=== PATIENT | female | born 1955 | race Caucasian/White ===

== ENCOUNTER 2017-12-12 01:36 | Inpatient (IN) | payer BC ==
[~2017-12-12] VITALS: Ht 165.1 cm; Wt 85.0 kg
[2017-12-12] VITALS (13 sets, daily range): BP systolic 93–132; BP diastolic 49–69
[2017-12-12 02:06] LABS: BASO % 1 % (0-3); EOS # 0.1 x10^3/uL (0.0-0.7); EOS % 1 % (0-3); HEMATOCRIT 34.8 % (36.0-47.0); LYMPH # 1.8 x10^3/uL (1.0-4.8); LYMPH % 20 % (24-48); MEAN CORPUSCULAR HEMOGLOBIN 34 pg (25-35); MEAN CORPUSCULAR HGB CONC 34 g/dL (31-37); MEAN CORPUSCULAR VOLUME 98 fL (79-100); MONO # 1.4 x10^3/uL (0.0-1.1); MONO % 15 % (0-9); NEUT # 5.9 x10^3uL (1.8-7.7); NEUT % 64 % (31-73); PLATELET COUNT 151 x10^3/uL (140-400); RED BLOOD COUNT 3.57 x10^6/uL (3.50-5.40); RED CELL DISTRIBUTION WIDTH 14.7 % (11.5-14.5); WHITE BLOOD COUNT 9.3 x10^3/uL (4.0-11.0)
[2017-12-12 02:21] LABS: CALCIUM 9.4 mg/dL (8.5-10.1); CREATININE 0.8 mg/dL (0.6-1.0); GFR 72.9; POTASSIUM 4.1 mmol/L (3.5-5.1)
[2017-12-12 02:25] LABS: ALBUMIN 3.6 g/dL (3.4-5.0); ALBUMIN/GLOBULIN RATIO 1.1 (1.0-1.7); TOTAL BILIRUBIN 0.2 mg/dL (0.2-1.0); TOTAL PROTEIN 6.9 g/dL (6.4-8.2)
[2017-12-12] MEDS ORDERED: fentaNYL PF VIAL 100 MCG/2 ML VIAL IV ONE ×2 (02:30→11:15)
[2017-12-12] MEDS ORDERED: CONTRAST GIVEN. MC PRN (02:45)
[2017-12-12] MEDS ORDERED: IOHEXOL 300 MG/ML 100ML VIAL. IV ONE (03:00)
--- NOTE | 2017-12-12 03:21 | RAD ---
INDICATION: chest pain, sob; Omni 300, 75ml COMPARISON: None. TECHNIQUE: Axial CT images obtained through the chest. Intravenous contrast utilized. Angiogram 3D images processed per protocol. One or more of the following individualized dose reduction techniques were utilized for this examination: 1. Automated exposure control; 2. Adjustment of the mA and/or kV according to patient size; 3. Use of iterative reconstruction technique. FINDINGS: There are some mild groundglass opacities and regions of air trapping. Sub-4 mm nodule left upper lung. No evidence of pneumothorax. Mild subpleural nodularity at right lung apex. Scattered calcific atherosclerosis. Portion of ascending thoracic aorta limited by motion but no definite aneurysm or dissection flap is seen in visualized portions. Coronary artery calcific atherosclerosis. Degenerative changes of the spine. No central pulmonary embolus IMPRESSION: No central pulmonary embolus. There are scattered groundglass opacities within the lungs. Could be secondary to causes such as mild edema or small airway inflammation from causes such as pneumonitis. Sub-4 mm left upper lung nodule. Fleischner Society recommendations for solitary solid lung nodule follow up.: In a low risk patient: <6mm - No follow up required. 6-8mm - 6-[address], then CT at 18-24 months. >8mm - CT at 3 months, PET/CT or tissue sampling. In a high risk patient (history of smoking or other known risk factors): <6mm - Follow up CT at 12 months. 6-8mm - 6-[address], then CT at 18-24 months. >8mm - CT at 3 months, PET/CT or tissue sampling. Fleischner Society recommendations for multiple solid lung nodule follow up.: In a low risk patient: <6mm - No follow up required. 6-8mm - 3-[address], then CT at 18-24 months. >8mm - CT at 3-6 months, then at 18-24 months. PET/CT or tissue sampling based on most suspicious nodule. In a high risk patient (history of smoking or other known risk factors): <6mm - Follow up CT at 12 months. 6-8mm - 3-[address], then CT at 18-24 months. >8mm - CT at 3-6 months, PET/CT or tissue sampling option based on most suspicious nodule. Electronically signed by: Nathan Mahan MD (12/12/2017 3:18 AM) [facility]
[2017-12-12] MEDS ORDERED: NITROGLYCERIN SUBLINGUAL 0.4 MG BOTTLE OF 25. SL PRN ×2 (03:30→11:30)
[2017-12-12] MEDS ORDERED: DOXYCYCLINE HYCLATE 100 MG TABLET PO ONE ×2 (03:30→03:45)
--- NOTE | 2017-12-12 03:37 | PHYS DOC ---
Past Medical History Past Medical History: RI, Seizure Past Surgical History: Knee Replacement Alcohol Use: Occasionally Drug Use: None Adult General Chief Complaint Chief Complaint: CHEST PAIN HPI HPI Patient is a 62 year old female presenting with chest pain and shortness of breath. She has had this since around 9 PM he says it hurts to take a deep breath in addition she has a pressure in her chest and she feels shortness of breath as well as just a bit difficult to catch her breath she says the pain is nonradiating and is in front of her chest. It feels different than her heart attack that she had back in 2004 she said no stents were placed she was treated medically she tells me. Review of Systems Review of Systems Constitutional: Denies fever or chills [] Eyes: Denies change in visual acuity, redness, or eye pain [] HENT: Denies nasal congestion or sore throat [] GI: Denies abdominal pain, nausea, vomiting, bloody stools or diarrhea [] : Denies dysuria or hematuria [] Musculoskeletal: Denies back pain or joint pain [] Integument: Denies rash or skin lesions [] All other systems were reviewed and found to be within normal limits, except as documented in this note. Current Medications Current Medications Current Medications Medications (Trade) Dose Ordered Sig/Maty Start Time Stop Time Status Last Admin Dose Admin Doxycycline Hyclate (Vibra-Tab) 100 mg 1X ONCE 12/12/17 03:30 12/12/17 03:31 UNV Fentanyl Citrate (Fentanyl 2ml Vial) 50 mcg 1X ONCE 12/12/17 02:30 12/12/17 02:31 DC 12/12/17 03:09 50 MCG Furosemide (Lasix) 20 mg 1X ONCE 12/12/17 04:00 12/12/17 04:01 Info (CONTRAST GIVEN -- Rx MONITORING) 1 each PRN DAILY PRN 12/12/17 02:45 12/14/17 02:44 Iohexol (Omnipaque 300 Mg/ml) 75 ml 1X ONCE 12/12/17 03:00 12/12/17 03:01 DC 12/12/17 03:01 75 ML Nitroglycerin (Nitrostat) 0.4 mg PRN Q5MIN PRN 12/12/17 03:30 12/13/17 03:29 Allergies Allergies Allergies Coded Allergies Type Severity Reaction Last Updated Verified morphine Allergy Intermediate 12/12/17 Yes Physical Exam Physical Exam Constitutional: Well developed, well nourished, no acute distress, non-toxic appearance. [] HENT: Normocephalic, atraumatic, bilateral external ears normal, oropharynx moist, no oral exudates, nose normal. [] Eyes: PERRLA, EOMI, conjunctiva normal, no discharge. [] Neck: Normal range of motion, no tenderness, supple, no stridor. [] Cardiovascular:Heart rate regular rhythm, no murmur [] Lungs & Thorax: Faint crackles lung bases Abdomen: Bowel sounds normal, soft, no tenderness, no masses, no pulsatile masses. [] Skin: Warm, dry, no erythema, no rash. [] Back: No tenderness, no CVA tenderness. [] Extremities: No tenderness, no cyanosis, no clubbing, ROM intact, 1+ symmetric edema Neurologic: Alert and oriented X 3, normal motor function, normal sensory function, no focal deficits noted. [] Psychologic: Affect normal, judgement normal, mood normal. [] Current Patient Data Vital Signs Vital Signs Date Time Temp Pulse Resp B/P (MAP) Pulse Ox O2 Delivery O2 Flow Rate FiO2 12/12/17 03:30 74 18 141/82 (101) 97 Nasal Cannula 2.0 12/12/17 01:53 98.6 98.6 Lab Values Laboratory Tests Test 12/12/17 01:50 White Blood Count 9.3 x10^3/uL (4.0-11.0) Red Blood Count 3.57 x10^6/uL (3.50-5.40) Hemoglobin 12.0 g/dL (12.0-15.5) Hematocrit 34.8 % (36.0-47.0) L Mean Corpuscular Volume 98 fL (79-100) Mean Corpuscular Hemoglobin 34 pg (25-35) Mean Corpuscular Hemoglobin Concent 34 g/dL (31-37) Red Cell Distribution Width 14.7 % (11.5-14.5) H Platelet Count 151 x10^3/uL (140-400) Neutrophils (%) (Auto) 64 % (31-73) Lymphocytes (%) (Auto) 20 % (24-48) L Monocytes (%) (Auto) 15 % (0-9) H Eosinophils (%) (Auto) 1 % (0-3) Basophils (%) (Auto) 1 % (0-3) Neutrophils # (Auto) 5.9 x10^3uL (1.8-7.7) Lymphocytes # (Auto) 1.8 x10^3/uL (1.0-4.8) Monocytes # (Auto) 1.4 x10^3/uL (0.0-1.1) H Eosinophils # (Auto) 0.1 x10^3/uL (0.0-0.7) Basophils # (Auto) 0.0 x10^3/uL (0.0-0.2) Prothrombin Time 13.0 SEC (11.7-14.0) Prothrombin Time INR 1.0 (0.8-1.1) Sodium Level 141 mmol/L (136-145) Potassium Level 4.1 mmol/L (3.5-5.1) Chloride Level 102 mmol/L (98-107) Carbon Dioxide Level 29 mmol/L (21-32) Anion Gap 10 (6-14) Blood Urea Nitrogen 17 mg/dL (7-20) Creatinine 0.8 mg/dL (0.6-1.0) Estimated GFR (Cockcroft-Gault) 72.9 BUN/Creatinine Ratio 21 (6-20) H Glucose Level 125 mg/dL (70-99) H Calcium Level 9.4 mg/dL (8.5-10.1) Total Bilirubin 0.2 mg/dL (0.2-1.0) Aspartate Amino Transferase (AST) 22 U/L (15-37) Alanine Aminotransferase (ALT) 20 U/L (14-59) Alkaline Phosphatase 132 U/L (46-116) H Troponin I Quantitative 0.033 ng/mL (0.000-0.055) BN-Clb-W-Type Natriuretic Peptide 207 pg/mL (0-124) H Total Protein 6.9 g/dL (6.4-8.2) Albumin 3.6 g/dL (3.4-5.0) Albumin/Globulin Ratio 1.1 (1.0-1.7) Laboratory Tests 12/12/17 01:50 Laboratory Tests 12/12/17 01:50 EKG EKG [] Interpretation Time: EKG shows normal sinus rhythm there are ST depressions noted inferiorly no old EKG is noted for comparison. There are also some ST depressions noted laterally on repeat EKG at 2:39 AM these changes are similar or even slightly improved. There is also borderline ST elevation in aVR but there is no STEMI identified. Radiology/Procedures Radiology/Procedures [] Impressions: FINDINGS: INDICATION: chest pain, sob; Omni 300, 75ml COMPARISON: None. TECHNIQUE: Axial CT images obtained through the chest. Intravenous contrast utilized. Angiogram 3D images processed per protocol. One or more of the following individualized dose reduction techniques were utilized for this examination: 1. Automated exposure control; 2. Adjustment of the mA and/or kV according to patient size; 3. Use of iterative reconstruction technique. FINDINGS: There are some mild groundglass opacities and regions of air trapping. Sub-4 mm nodule left upper lung. No evidence of pneumothorax. Mild subpleural nodularity at right lung apex. Scattered calcific atherosclerosis. Portion of ascending thoracic aorta limited by motion but no definite aneurysm or dissection flap is seen in visualized portions. Coronary artery calcific atherosclerosis. Degenerative changes of the spine. No central pulmonary embolus IMPRESSION: No central pulmonary embolus. There are scattered groundglass opacities within the lungs. Could be secondary to causes such as mild edema or small airway inflammation from causes such as pneumonitis. Sub-4 mm left upper lung nodule. Fleischner Society recommendations for solitary solid lung nodule follow up.: Course & Med Decision Making Course & Med Decision Making Pertinent Labs and Imaging studies reviewed. (See chart for details) []62-year-old female with reported prior history of RI greater than 10 years ago apparently no stents were placed according to the patient presenting with pleuritic chest pain as well as shortness of breath she does appear mildly dyspneic. Differential included PE versus RI. EKG did show some borderline ST depressions. Troponin was negative after greater than 4 hours of symptoms which is good we will cycle them as an inpatient in the hospital. CT PE protocol did show some groundglass opacities I did order a dose of furosemide as well as doxycycline patient has not had cough or fever I think mild pulmonary edema perhaps related to hypertension would be more likely THAN PNA. Patient is on Nitropaste was placed by the paramedics. Patient be admitted to the service of Dr. Cruz for serial troponins and cardiac consultation. Dragon Disclaimer Dragon Disclaimer This electronic medical record was generated, in whole or in part, using a voice recognition dictation system. Departure Departure Impression: Primary Impression: Chest pain Disposition: ADMITTED INPATIENT Admitting Physician: Luz Vilchis Condition: STABLE Referrals: PANKAJ YANCEY MD (PCP) RONIT SEALS MD Dec 12, 2017 03:37
[2017-12-12] MEDS ORDERED: FUROSEMIDE 20 MG/2 ML VIAL. IVP ONE (04:00)
[2017-12-12] MEDS ORDERED: ISOS30TA4 PO (06:14)
[2017-12-12] MEDS ORDERED: PROAIR HFA8.5 GM INH (06:14)
[2017-12-12] MEDS ORDERED: CRESTOR10 MG PO (06:14)
[2017-12-12] MEDS ORDERED: CARV6.25 PO (06:14)
[2017-12-12] MEDS ORDERED: DIVA500T2 PO (06:14)
[2017-12-12] MEDS ORDERED: CARB200T PO (06:14)
[2017-12-12] MEDS ORDERED: ASPI-630 PO (06:14)
--- NOTE | 2017-12-12 06:17 | EKG ---
[facility] [address] [place] [address] Test Date: 2017-12-12 Test Time: 02:39:55 Pat Name: TANNER EARLY Department: Room: 206 1 Gender: F Foreign Languages Professor: : 1955 Requested By: RONIT SEALS Order Number: [id number] Reading MD: Juventino Arroyo MD Measurements Intervals [place] Rate: 74 P: 49 OR: 170 QRS: -26 QRSD: 84 T: 1 QT: 350 QTc: 393 Interpretive Statements SINUS RHYTHM LEFTWARD AXIS QRS(T) CONTOUR ABNORMALITY CONSISTENT WITH ANTEROSEPTAL INFARCT Electronically Signed On 12-12-2017 12:27:12 CDT by Juventino Arroyo MD
--- NOTE | 2017-12-12 06:25 | EKG ---
[facility] [address] [place] [address] Test Date: 2017-12-12 Test Time: 01:42:39 Pat Name: TANNER EARLY Department: Room: 206 1 Gender: F Accreditation Manager: : [id number] Requested By: RONIT SEALS Order Number: [id number] Reading MD: Juventino Arroyo MD Measurements Intervals [place] Rate: 76 P: 54 [place]: 164 QRS: -30 QRSD: 86 T: -2 QT: 350 QTc: 397 Interpretive Statements SINUS RHYTHM ABNORMAL LEFT AXIS DEVIATION LEFT ANTERIOR FASCICULAR BLOCK CONSIDER LEFT VENTRICULAR HYPERTROPHY QRS(T) CONTOUR ABNORMALITY CONSISTENT WITH ANTEROSEPTAL INFARCT NON-SPECIFIC ST/T CHANGES Electronically Signed On 12-12-2017 12:27:04 CDT by Juventino Arroyo MD
[2017-12-12 08:10] LABS: MAGNESIUM 1.6 mg/dL (1.8-2.4)
[2017-12-12 08:12] LABS: CHOLESTEROL/HDL RATIO 2.3
[2017-12-12] MEDS ORDERED: MAGNESIUM SULFATE 2GM 50 ML IV ONE (09:00)
--- NOTE | 2017-12-12 09:10 | RAD ---
Single view of the chest. 12/12/2017 2:17 AM Indication: Chest pain, shortness of breath Comparison: chest radiograph of January 03, 2013. Findings: There is no focal consolidation. There is no pleural effusion or pneumothorax. Heart size appears top normal. No acute osseous abnormalities are seen. Impression: No radiographic evidence of acute cardiopulmonary process. Electronically signed by: Bran Stern MD (12/12/2017 9:07 AM) [facility]
--- NOTE | 2017-12-12 09:43 | PDOC2 ---
FILEMON GOETZ [employer] 12/12/17 0943: CARDIAC CONSULT DATE OF CONSULT Date of Consult DATE: 12/12/17 TIME: 09:28 REASON FOR CONSULT Reason for Consult: chest pain REFERRING PHYSICIAN Referring Physician: Frandy SOURCE Source: Chart review, Patient HISTORY OF PRESENT ILLNESS HISTORY OF PRESENT ILLNESS This is a pleasant 62 yo female admitted for complains of chest pain. Pt has hx of nonobstructive CAD noted via last [facility] in 2006 but no intervention and sees possibly [facility] cardiology. She has not been having any chest pain or SOA till last night. She was going to bed at 9 PM when she started having this throbbing sharp left chest pain and took tums with no relief so she took regular dose aspiring. Reports that this started intensifying and radidated to her left arm, positive for SOA but no significant nausea or diaphoresis. Reports also of possibly seizure last Friday and woke her up at night with bitten tongue and saw Hab[facility] and no changes to her medications but advised to make a diary. PAST MEDICAL HISTORY Cardiovascular: CAD, HTN, Hyperlipidemia Pulmonary: No pertinent hx CENTRAL NERVOUS SYSTEM: Seizure GI: Peptic Ulcer disease (2 yrs ago) Heme/Onc: No pertinent hx Hepatobiliary: No pertinent hx Psych: No pertinent hx Musculoskeletal: Osteoarthritis Rheumatologic: No pertinent hx Infectious disease: No pertinent hx ENT: Other (cataract) Renal/: No pertinent hx Endocrine: No pertinent hx Dermatology: No pertinent hx PAST SURGICAL HISTORY Past Surgical History: Total knee replacement (left), Other ([facility] 2005 and 2006 no intervention) FAMILY HISTORY Family History noncontributory to CV SOCIAL HISTORY Smoke: Quit (remotely) ALCOHOL: none Drugs: None Lives: Alone CURRENT MEDICATIONS CURRENT MEDICATIONS Current Medications Medications (Trade) Dose Ordered Sig/Maty Route PRN Reason Start Time Stop Time Status Last Admin Dose Admin Fentanyl Citrate (Fentanyl 2ml Vial) 50 mcg 1X ONCE IV 12/12/17 02:30 12/12/17 02:31 DC 12/12/17 03:09 Iohexol (Omnipaque 300 Mg/ml) 75 ml 1X ONCE IV 12/12/17 03:00 12/12/17 03:01 DC 12/12/17 03:01 Doxycycline Hyclate (Vibra-Tab) 100 mg 1X ONCE PO 12/12/17 03:45 12/12/17 03:46 DC 12/12/17 04:03 Furosemide (Lasix) 20 mg 1X ONCE IVP 12/12/17 04:00 12/12/17 04:01 DC 12/12/17 04:03 ALLERGIES ALLERGIES: Coded Allergies: morphine (Verified Allergy, Intermediate, 12/12/17) ROS Review of System 14 point ROS evaluated with pertinent positives noted per HPI PHYSICAL EXAM General: Alert, Oriented X3, Cooperative, No acute distress HEENT: Atraumatic, Mucous membr. moist/pink Lungs: Clear to auscultation, Normal air movement Heart: Regular rate (SR), Normal S1, Normal S2, Other (2/6 systolic murmur to LLS border) Abdomen: Soft, No tenderness Extremities: No cyanosis, No edema Skin: No breakdown, No significant lesion Neuro: Normal speech, Sensation intact Psych/Mental Status: Mental status NL, Mood NL MUSCULOSKELETAL: Osteoarthritic changes both hands VITALS VITALS Vital Signs Date Time Temp Pulse Resp B/P (MAP) Pulse Ox O2 Delivery O2 Flow Rate FiO2 12/12/17 07:35 Nasal Cannula 2.0 12/12/17 06:34 98.3 72 16 115/65 (82) 94 98.3 LABS Lab: Laboratory Tests Test 12/12/17 01:50 12/12/17 06:30 White Blood Count 9.3 x10^3/uL (4.0-11.0) Red Blood Count 3.57 x10^6/uL (3.50-5.40) Hemoglobin 12.0 g/dL (12.0-15.5) Hematocrit 34.8 % (36.0-47.0) Mean Corpuscular Volume 98 fL (79-100) Mean Corpuscular Hemoglobin 34 pg (25-35) Mean Corpuscular Hemoglobin Concent 34 g/dL (31-37) Red Cell Distribution Width 14.7 % (11.5-14.5) Platelet Count 151 x10^3/uL (140-400) Neutrophils (%) (Auto) 64 % (31-73) Lymphocytes (%) (Auto) 20 % (24-48) Monocytes (%) (Auto) 15 % (0-9) Eosinophils (%) (Auto) 1 % (0-3) Basophils (%) (Auto) 1 % (0-3) Neutrophils # (Auto) 5.9 x10^3uL (1.8-7.7) Lymphocytes # (Auto) 1.8 x10^3/uL (1.0-4.8) Monocytes # (Auto) 1.4 x10^3/uL (0.0-1.1) Eosinophils # (Auto) 0.1 x10^3/uL (0.0-0.7) Basophils # (Auto) 0.0 x10^3/uL (0.0-0.2) Prothrombin Time 13.0 SEC (11.7-14.0) Prothromb Time International Ratio 1.0 (0.8-1.1) Sodium Level 141 mmol/L (136-145) Potassium Level 4.1 mmol/L (3.5-5.1) Chloride Level 102 mmol/L (98-107) Carbon Dioxide Level 29 mmol/L (21-32) Anion Gap 10 (6-14) Blood Urea Nitrogen 17 mg/dL (7-20) Creatinine 0.8 mg/dL (0.6-1.0) Estimated GFR (Cockcroft-Gault) 72.9 BUN/Creatinine Ratio 21 (6-20) Glucose Level 125 mg/dL (70-99) Calcium Level 9.4 mg/dL (8.5-10.1) Total Bilirubin 0.2 mg/dL (0.2-1.0) Aspartate Amino Transf (AST/SGOT) 22 U/L (15-37) Alanine Aminotransferase (ALT/SGPT) 20 U/L (14-59) Alkaline Phosphatase 132 U/L (46-116) Troponin I Quantitative 0.033 ng/mL (0.000-0.055) 0.167 ng/mL (0.000-0.055) YI-Kzr-D-Type Natriuretic Peptide 207 pg/mL (0-124) Total Protein 6.9 g/dL (6.4-8.2) Albumin 3.6 g/dL (3.4-5.0) Albumin/Globulin Ratio 1.1 (1.0-1.7) Magnesium Level 1.6 mg/dL (1.8-2.4) Triglycerides Level 88 mg/dL (0-150) Cholesterol Level 207 mg/dL (0-200) LDL Cholesterol, Calculated 100 mg/dL (0-100) VLDL Cholesterol, Calculated 18 mg/dL (0-40) Non-HDL Cholesterol Calculated 118 mg/dL (0-129) HDL Cholesterol 89 mg/dL (40-60) Cholesterol/HDL Ratio 2.3 Thyroid Stimulating Hormone (TSH) 2.455 uIU/mL (0.358-3.74) ASSESSMENT/PLAN ASSESSMENT/PLAN 1. NSTEMI: troponin at 0.16, EKG with inferolateral ST depression. 2. HTN: controlled 3. HLP 4. Hx of seizure: (tongue biting) last episode Wed and saw Dr. May yesterday no med changes but advised to make diary 5. Hx of nonobstructive CAD: possibly sees [facility] cardiology Recommendations 1. C today, risks and benefits explained, agreeable to proceed. 2. TTE, TSH, lipids. 3. ASA. Start IVF with recent contrast exposure CTA. 4. Will reeval med needs once diagnostics are complete. 5. On depakote and tegretol, consult neurology RENAN SHAIKH MD 12/12/17 1129: CARDIAC CONSULT ASSESSMENT/PLAN ASSESSMENT/PLAN Patient seen and examined. Agree with NECKTIE STITCHER's assessment and plan. Chest pain with mixed features, troponin slightly elevated at EKG with inferolateral ST depressions Plan for cardiac catheterization and possible angina plasty. Risks and benefits were explained. Thank you for your consultation. FILEMON GOETZ APRN Dec 12, 2017 09:43 RENAN SHAIKH MD Dec 12, 2017 11:29
[2017-12-12] MEDS ORDERED: ASPIRIN ENTERIC COATED 325 MG TABLET.DR. PO ONE (09:45)
[2017-12-12] MEDS ORDERED: PERFLUTREN PROTEIN-A MICROSPHR 0.22 MG/ML 3 ML VIAL. IV ONE (09:51)
[2017-12-12] MEDS ORDERED: IV NORMAL SALINE 1000ML BAG 1,000 ML IV SCH ×2 (10:00)
[2017-12-12] MEDS ORDERED: PERFLUTREN PROTEIN-A MICROSPHR 0.22 MG/ML 3 ML VIAL. IV PRN (10:00)
[2017-12-12] MEDS ORDERED: IODIXANOL 320 MG/ML 100 ML VIAL. ONE (10:05)
[2017-12-12] MEDS ORDERED: LIDOCAINE 1% PF 2 ML VIAL. ONE (10:05)
[2017-12-12] MEDS ORDERED: MIDAZOLAM HCL/PF 5 MG/5 ML VIAL. ONE (10:49)
[2017-12-12] MEDS ORDERED: fentaNYL PF VIAL 100 MCG/2 ML VIAL ONE (10:49)
[2017-12-12] MEDS ORDERED: HEPARIN for IV BOLUS 10,000 UNIT/10 ML VIAL. ONE (10:49)
[2017-12-12] MEDS ORDERED: VERAPAMIL 5 MG/2 ML VIAL. ONE (10:49)
[2017-12-12] MEDS ORDERED: NITROGLYCERIN 200 MCG/2 ML SYRINGE FOR CATH/VASC LAB. ONE (10:49)
--- NOTE | 2017-12-12 10:56 | CARD ---
MR#: [id number] Date of Study: 12/12/2017 Ordering Physician: FILEMON GOETZ, Referring Physician: ANDREW PEÑA, Tech: EBONY Ferrer APPROVED REPORT EXAM: Two-dimensional and M-mode echocardiogram with Doppler, color Doppler with contrast. Other Information Quality : AverageHR: 73bpm Technically limited study due to body habitus. INDICATION Chest Pain Echo Enhancing Agent Indication: Endocardial border delineation Agent/Amount Used: Optison 3mL 2D DIMENSIONS RVDd3.0 (2.9-3.5cm)Left Atrium(2D)3.0 (1.6-4.0cm) IVSd1.1 (0.7-1.1cm)Aortic Root(2D)2.8 (2.0-3.7cm) LVDd3.9 (3.9-5.9cm)LVOT Diameter1.9 (1.8-2.4cm) PWd0.9 (0.7-1.1cm)IVSs1.6 (0.8-1.2cm) LVDs2.5 (2.5-4.0cm)FS (%) 36.7 % PWs1.8 (0.8-1.2cm)SV45.2 ml LVEF(%)67.1 (>50%) Aortic Valve AoV Peak Edilson.141.8cm/sAoV VTI25.5cm AO Peak GR.8.0mmHgLVOT Peak Edilson.101.4cm/s LVOT VTI 19.68cmAO Mean GR.5mmHg RAYNE (VMAX)1.65yt7VKI (VTI)2.15cm2 Mitral Valve MV E Fnhmtoir43.6cm/sMV DECEL EGIU323rk MV A Swwqjvjn88.1cm/sMV ALU81yr E/A Ratio1.0MVA (PHT)3.77cm2 TDI E/Lateral E'8.0E/Medial E'7.9 Pulmonary Vein S1 Kbtrnodu71.5cm/sD2 Hdnsvjut98.2cm/s LEFT VENTRICLE The left ventricle is normal size. There is normal left ventricular wall thickness. The left ventricu lar systolic function is normal. The ejection fraction is estimated at 65%. There is normal LV segmen sandy wall motion. The left ventricular diastolic function and filling is normal for age. RIGHT VENTRICLE The right ventricle is normal size. The right ventricular systolic function is normal. ATRIA The left atrium size is normal. The right atrium size is normal. The interatrial septum is intact wit h no evidence for an atrial septal defect or patent foramen ovale as noted on 2-D or Doppler imaging. AORTIC VALVE The aortic valve is thickened but opens well. Doppler and Color Flow revealed no significant aortic r egurgitation. There is no significant aortic valvular stenosis. There is no aortic valvular vegetatio n. MITRAL VALVE The mitral valve is thickened but opens well. There is no evidence of mitral valve prolapse. There is no mitral valve stenosis. Doppler and Color Flow revealed no mitral valve regurgitation noted. TRICUSPID VALVE The tricuspid valve leaflets are thickened , but open well. Doppler and Color Flow revealed no tricus pid valve regurgitation noted. There is no tricuspid valve prolapse or vegetation. There is no tricus pid valve stenosis. PULMONIC VALVE The pulmonic valve is not well visualized. Doppler and Color Flow revealed no pulmonic valvular regur gitation. There is no pulmonic valvular stenosis. GREAT VESSELS The aortic root is normal in size. The IVC is normal in size and collapses >50% with inspiration. PERICARDIAL EFFUSION There is no pleural effusion. There is no evidence of significant pericardial effusion. Critical Notification Critical Value: No <Conclusion> The left ventricular systolic function is normal. The ejection fraction is estimated at 65%. There is normal LV segmental wall motion. No significant valvular abnormalities. There is no evidence of significant pericardial effusion. Signed by : Aniket Gee, Electronically Approved : 12/12/2017 10:55:39
--- NOTE | 2017-12-12 11:05 | HP ---
ADMIT DATE: 12/12/2017 CHIEF COMPLAINT: Chest pain. HISTORY OF PRESENT ILLNESS: The patient is a pleasant 62-year-old female who presented with chest pain. She had associated shortness of breath and abdominal pain as well, rated at 7/10. It was difficult to catch her breath. While in the ER, she was noted to have a slight bump in her troponin to 0.03. I have discussed the case with ER physician and the Cardiology nurse practitioner. Plan is to take her to the laboratory operations coordinator hopefully today. We will await further cardiac input. PAST MEDICAL HISTORY: Previous cardiac catheterization, but she states she did not have any stents at that time, although there was some mild plaquing; previous myocardial infarction; seizure and knee replacement. ALLERGIES: MORPHINE. FAMILY HISTORY: Coronary artery disease. SOCIAL HISTORY: She does not drink, smoke or take drugs. MEDICATIONS: Reviewed, please refer to the MRAD. REVIEW OF SYSTEMS: GENERAL: No history of weight change, weakness or fevers. SKIN: No bruising, hair changes or rashes. EYES: No blurred, double or loss of vision. NOSE AND THROAT: No history of nosebleeds, hoarseness or sore throat. HEART: The patient complains of chest pain. LUNGS: Denies cough, hemoptysis, wheezing or shortness of breath. GASTROINTESTINAL: The patient complains abdominal pain. GENITOURINARY: No history of frequency, urgency, hesitancy or nocturia. NEUROLOGIC: Denies history of numbness, tingling, tremor or weakness. PSYCHIATRIC: No history of panic, anxiety or depression. ENDOCRINE: No history of heat or cold intolerance, polyuria or polydipsia. EXTREMITIES: Denies muscle weakness, joint pain, pain on walking or stiffness. PHYSICAL EXAMINATION: VITAL SIGNS: Temperature afebrile, pulse 74, respirations 16 and blood pressure 132/90. GENERAL: She is alert and cooperative. HEART: Normal S1 and S2. LUNGS: Clear. ABDOMEN: Soft. EXTREMITIES: No edema. SKIN: No rashes. ENDOCRINE: No thyromegaly. LYMPHATICS: No cervical nodes. HEMATOPOIETIC: No bruising. LABORATORY DATA: Hematology is normal. Electrolytes are pending. Troponin is 0.03 and now it is up to 0.167. ASSESSMENT AND PLAN: Probable acute myocardial infarction. The patient has been admitted. We have checked serial enzymes. We will continue checking serial enzymes. I discussed the case with the nurse practitioner from Cardiology. He is hoping to get her scheduled for cardiac catheterization today. Continue home medicines. Regarding her seizure medications, she is n.p.o. We are going to have to start her on some IV Keppra but would like to get a second opinion from Dr. Marcos before I do this. PROGNOSIS: Guarded. WINSOME PEREZ DO DR: EDWARDO/marcus JOB#: [id number] / [id number]
[2017-12-12] MEDS ORDERED: HEPARIN for IV BOLUS 10,000 UNIT/10 ML VIAL. IART ONE (11:15)
[2017-12-12] MEDS ORDERED: MIDAZOLAM HCL/PF 5 MG/5 ML VIAL. IV ONE (11:15)
[2017-12-12] MEDS ORDERED: LIDOCAINE 1% PF 2 ML VIAL. INJ ONE (11:15)
[2017-12-12] MEDS ORDERED: VERAPAMIL 5 MG/2 ML VIAL. IART ONE (11:15)
[2017-12-12] MEDS ORDERED: IODIXANOL 320 MG/ML 100 ML VIAL. IART ONE (11:15)
[2017-12-12] MEDS ORDERED: NITROGLYCERIN 200 MCG/2 ML SYRINGE FOR CATH/VASC LAB. IART ONE (11:15)
--- NOTE | 2017-12-12 11:26 | PDOC ---
MODERATE SEDATION ASSESSMENT RISKS/ALTERNATIVES Risks/Alternatives Risks and alternatives of this type of sedation and procedure discussed with: RISK/ALTERNATIVES: Patient H & P ON CHART H & P H & P on chart and reviewed for co-morbid conditions and appropriate labs. H&P ON CHART: Yes STATUS PREG STATUS ASSESSED: N/A MEDS/ALLERGIES REVIEWED Meds/Allergies Reviewed Medications and Allergies including time and route of recently administered narcotics and sedatives. MEDS/ALLERGIES REVIEWED: Yes ASA RATING ASA RATING: II AIRWAY ASSESSMENT Airway Assessment Airway patency, oral function limitations, presence of caps, crowns, dentures, partials, and ability to extend neck assessed. AIRWAY ASSESSMENT: Yes MALLAMPATI SCORE MALLAMPATI SCORE: II PRE-SEDATION ASSESSMENT PRE-SEDATION ASSESSMENT: Yes RENAN SHAIKH MD Dec 12, 2017 11:26
[2017-12-12] MEDS ORDERED: IV 1/2 NORMAL SALINE 1,000 ML IV SCH (12:00)
--- NOTE | 2017-12-12 12:01 | CARD ---
MR#: [id number] Date of Study: 12/12/2017 Ordering Physician: FILEMON GOETZ, Referring Physician: ANDREW PEÑA Tech: RT Sushant (R) APPROVED REPORT Technologist: RT Sushant (R) Nurse: Maria M Romeo R.N. Procedure(s) performed: Left heart catheterization, selective coronary angiography and left ventricul ography via right transradial approach Moderate sedation: 32 min INDICATION The indication(s) include : Unstable angina. PROCEDURE NARRATIVE After explaining the risks, benefits and alternative options, informed consent was obtained from mari[place] ent. Patient was brought to the cardiac [employer] Officer and right wrist was prepped and draped in the usual fashion after confirming a positive modified Bogdan's test. Arterial access was obtained in the righ t radial artery and a 6 Congolese sheath was inserted. 6 Congolese Marquise catheter was used to perform luci ective angiography of the left and right coronary arteries. The same catheter was used to perform lef t ventriculography. Patient tolerated the procedure well. Hemostasis was achieved using TR band. T here were no immediate complications. The following findings were noted. FINDINGS 1. Hemodynamics: Left ventricular end-diastolic pressure of 16 mmHg. No pullback gradient across th e aortic valve. 2. Left ventriculography: Normal left ventricle systolic function with ejection fraction estimated at 65%. No significant mitral regurgitation seen. 3. Coronary angiography: a. The left main coronary artery arose from the left sinus of Valsalva, gave rise to the left anteri or descending, ramus intermedius and left circumflex arteries and did not show any significant stenos is. b. The left anterior descending artery showed 30% stenosis in the midsegment. c. The left circumflex artery did not show any significant stenosis. d. The ramus intermedius artery did not show any significant stenosis. e. The right coronary artery was a large and dominant vessel arising from the right sinus of Valsalv a that showed 30% stenosis in the proximal segment of the posterolateral branch. Conclusion 1. Nonobstructive coronary artery disease 2. Normal left ventricle systolic function with ejection fraction estimated at 65%. Recommendations Medical Therapy Signed by : Aniket Gee, Electronically Approved : 12/12/2017 12:00:51
[2017-12-12] MEDS ORDERED: ALBUTEROL SULFATE 2.5 MG/3 ML NEBU. NEB PRN (12:45)
[2017-12-12] MEDS: ISOSORBIDE MONONITRATE ER 30 MG TAB.ER.24H PO SCH (13:00)
[2017-12-12] MEDS: DIVALPROEX DELAYED RELEASE 500 MG TABLET.DR. PO SCH ×2 (13:12→20:01)
[2017-12-12] MEDS: carBAMazepine 200 MG TABLET PO SCH ×2 (13:12→20:01)
--- NOTE | 2017-12-12 15:08 | PDOC2 ---
NEUROLOGY CONSULT Date of Admission Date of Admission DATE: 12/12/17 TIME: 14:51 Reason for Consult Reason for Consult: IMPRESSION: Seizure? Non epileptic psychiatric seizure? Or combine? Intermittent tongue biting during night sleep, seizure or sleep disorder ? Chest pain. HTN. HLD. Cognitive impairment. RECOMMENDATIONS/PLAN: EEG. LTM VEEG as outpatient. Lab: see orders. She has been treated with Tegretol and Depakote by her neurologist. Treat medical and cardiac diseases. HISTORY OF THE PRESENT ILLNESS: 62-y-old female patient with Hx of seizure and has been treated with her neurologists. She stated her seizures started at age 14 and she had 1 convulsion, but many tongue biting during nigh sleep. She had one urinary incontinence for years. She was treated with PB and Dilantin but did nit help, and on the contrary PD causing more tongue biting, so her AEDs were changed to Tegretol and Depakote and her tong biting seemed decreased some. She has been using night mouth guard. Her last tongue biting was Friday night. Her tongue biting was in right side most time. PAST MEDICAL HISTORY Cardiovascular: CAD, HTN, Hyperlipidemia Pulmonary: No pertinent hx CENTRAL NERVOUS SYSTEM: Seizure GI: Peptic Ulcer disease (2 yrs ago) Heme/Onc: No pertinent hx Hepatobiliary: No pertinent hx Psych: No pertinent hx Musculoskeletal: Osteoarthritis Rheumatologic: No pertinent hx Infectious disease: No pertinent hx ENT: Other (cataract) Renal/: No pertinent hx Endocrine: No pertinent hx Dermatology: No pertinent hx PAST SURGICAL HISTORY Total knee replacement (left), Other ([facility] 2005 and 2006 no intervention) FAMILY HISTORY No hx of seizures. SOCIAL HISTORY Smoke: Quit (remotely) ALCOHOL: none Drugs: None Lives: Alone ALLERGIES Morphine (Verified Allergy, Intermediate, 12/12/17) MEDICATIONS: Refer to [facility] REVIEW OF SYSTEMS: Constitutional: No malnutrition, weight loss, cachexia. Head: No traumatic brain or head injury. Skin: No edema, or rash. Ear: No infection. Eyes: No vision loss or color blindness. Nose: No bleeding or purulent discharges. Hearing: No hearing decrease. Neck: No injury. Breast: No history of cancer, masses,or discharges. Cardiac: CAD, chest pain, HTN, HLD. Pulmonary: No COPD. GI: No GI ulcer, GI bleeding. Urinary/genital: UTI. Endocrinologic: No cousin face, craniofacial dysmorphism, polydactyly. Skeletomuscular: No muscular atrophy, deformity. Neurological: see HP. Psychiatric: Denies drug use/abuse. Otherwise, not [id number] review of systems. PHYSICAL EXAMINATION: General appearance is in subacute distress. HEENT: Normocephalic and nontraumatic. Eyes, nose, ears, and throat are unremarkable. Neck is supple. No lymphadenopathy. No bruits are heard over the carotid artery. No crepitus. Cardiovascular: S1, S2, regular rate and rhythm. Pulmonary: Clear to auscultation bilaterally. Abdomen: Bowel sounds are positive. Abdomen is soft, nontender, and nondistended. Extremities: No rash, lesions, or edema. No restriction of range of motion NEUROLOGICAL EXAMINATION: Alert Oriented to time, place and person. Her reactions were slow. PERRL. EOMI. CN: no focal findings. Muscle tone: within normal. Muscle strength: 5 DTR: 2 Plantar reflex: Flexor response bilaterally Gait: not examined in bed. Sensory exam: no abnormal findings. No cerebellar signs elicited. F-T-N test accurate. Current Medications Current Medications Current Medications Fentanyl Citrate (Fentanyl 2ml Vial) 50 mcg 1X ONCE IV Last administered on at 03:09; Start 12/12/17 at 02:30; Stop 12/12/17 at 02:31; Status DC Iohexol (Omnipaque 300 Mg/ml) 75 ml 1X ONCE IV Last administered on 12/12/17at 03:01; Start 12/12/17 at 03:00; Stop 12/12/17 at 03:01; Status DC Info (CONTRAST GIVEN -- Rx MONITORING) 1 each PRN DAILY PRN MC SEE COMMENTS; Start 12/12/17 at 02:45; Stop 12/14/17 at 02:44 Doxycycline Hyclate (Vibra-Tab) 100 mg 1X ONCE PO Last administered on at 04:03; Start 12/12/17 at 03:45; Stop 12/12/17 at 03:46; Status DC Nitroglycerin (Nitrostat) 0.4 mg PRN Q5MIN PRN SL CHEST PAIN; Start 12/12/17 at 03:30; Stop 12/13/17 at 03:29 Doxycycline Hyclate (Vibra-Tab) 100 mg 1X ONCE PO ; Start 12/12/17 at 03:30; Stop 12/12/17 at 03:31; Status UNV Furosemide (Lasix) 20 mg 1X ONCE IVP Last administered on 12/12/17at 04:03; Start 12/12/17 at 04:00; Stop 12/12/17 at 04:01; Status DC Magnesium Sulfate 50 ml @ 25 mls/hr 1X ONCE IV Last administered on 12/12/17at 09:37; Start 12/12/17 at 09:00; Stop 12/12/17 at 10:59; Status DC Sodium Chloride 1,000 ml @ 100 mls/hr Q10H IV Last administered on 12/12/17at 09:37; Start 12/12/17 at 10:00 Sodium Chloride 1,000 ml @ 100 mls/hr Q10H IV ; Start 12/12/17 at 10:00; Stop 12/12/17 at 10:00; Status DC Aspirin (Ecotrin) 325 mg 1X ONCE PO Last administered on 12/12/17at 10:00; Start 12/12/17 at 09:45; Stop 12/12/17 at 09:46; Status DC Perflutren Protein Type A Microsphe (Optison) 0.66 mg STK-MED ONCE IV ; Start at 09:51; Stop 12/12/17 at 09:52; Status DC Perflutren Protein Type A Microsphe (Optison) 0.66 mg PRN 1X PRN IV SEE COMMENTS Last administered on 12/12/17at 10:15; Start 12/12/17 at 10:00; Stop at 09:59 Iodixanol (Visipaque 320) 100 ml STK-MED ONCE .ROUTE ; Start 12/12/17 at 10:05; Stop 12/12/17 at 10:06; Status DC Lidocaine HCl (Xylocaine-Mpf 1% 2ml Vial) 2 ml STK-MED ONCE .ROUTE ; Start 12/12 at 10:05; Stop 12/12/17 at 10:06; Status DC Heparin Sodium/ Sodium Chloride 500 ml @ As Directed STK-MED ONCE .ROUTE ; Start 12/12/17 at 10:05; Stop 12/12/17 at 10:06; Status DC Fentanyl Citrate (Fentanyl 2ml Vial) 100 mcg STK-MED ONCE .ROUTE ; Start at 10:49; Stop 12/12/17 at 10:50; Status DC Midazolam HCl (Versed) 5 mg STK-MED ONCE .ROUTE ; Start 12/12/17 at 10:49; Stop 12/12/17 at 10:50; Status DC Heparin Sodium (Porcine) (Heparin Sodium) 10,000 unit STK-MED ONCE .ROUTE ; Start 12/12/17 at 10:49; Stop 12/12/17 at 10:50; Status DC Verapamil HCl (Verapamil) 5 mg STK-MED ONCE .ROUTE ; Start 12/12/17 at 10:49; Stop 12/12/17 at 10:50; Status DC Nitroglycerin (Nitroglycerin) 200 mcg STK-MED ONCE .ROUTE ; Start 12/12/17 at 10 :49; Stop 12/12/17 at 10:50; Status DC Nitroglycerin (Nitroglycerin) 200 mcg 1X ONCE IART Last administered on at 11:33; Start 12/12/17 at 11:15; Stop 12/12/17 at 11:16; Status DC Verapamil HCl (Verapamil) 2.5 mg 1X ONCE IART Last administered on 12/12/17at 11:31; Start 12/12/17 at 11:15; Stop 12/12/17 at 11:16; Status DC Heparin Sodium (Porcine) (Heparin Sodium) 2,500 unit 1X ONCE IART Last administered on 12/12/17at 11:35; Start 12/12/17 at 11:15; Stop 12/12/17 at 11:16 ; Status DC Midazolam HCl (Versed) 5 mg 1X ONCE IV Last administered on 12/12/17at 11:32; Start 12/12/17 at 11:15; Stop 12/12/17 at 11:16; Status DC Fentanyl Citrate (Fentanyl 2ml Vial) 100 mcg 1X ONCE IV Last administered on at 11:31; Start 12/12/17 at 11:15; Stop 12/12/17 at 11:16; Status DC Iodixanol (Visipaque 320) 100 ml 1X ONCE IART Last administered on 12/12/17at 11:29; Start 12/12/17 at 11:15; Stop 12/12/17 at 11:16; Status DC Lidocaine HCl (Xylocaine-Mpf 1% 2ml Vial) 2 ml 1X ONCE INJ Last administered on 12/12/17at 11:32; Start 12/12/17 at 11:15; Stop 12/12/17 at 11:16; Status DC Sodium Chloride 1,000 ml @ 100 mls/hr Q10H IV Last administered on 12/12/17at 13:13; Start 12/12/17 at 12:00 Nitroglycerin (Nitrostat) 0.4 mg PRN Q5MIN PRN SL CHEST PAIN; Start 12/12/17 at 11:30 Heparin Sodium/ Sodium Chloride (HEPARIN for ARTERIAL LINE FLUSH) 1,000 unit 1X ONCE IART Last administered on 12/12/17at 11:37; Start 12/12/17 at 11:45; Stop 12/12/17 at 11:46; Status DC Carbamazepine (TEGretol) 300 mg BID PO Last administered on 12/12/17at 13:12; Start 12/12/17 at 13:00 Divalproex Sodium (Depakote) 1,000 mg BID PO Last administered on 12/12/17at 13: 12; Start 12/12/17 at 13:00 Aspirin (Children'S Aspirin) 81 mg HS PO ; Start 12/12/17 at 21:00 Carvedilol (Coreg) 6.25 mg BIDWMEALS PO ; Start 12/12/17 at 17:00 Isosorbide Mononitrate (Imdur) 30 mg DAILY PO ; Start 12/12/17 at 13:00 Albuterol Sulfate (Ventolin Neb Soln) 2.5 mg PRN Q6HRS PRN NEB SHORTNESS OF BREATH; Start 12/12/17 at 12:45 Atorvastatin Calcium (Lipitor) 40 mg QHS PO ; Start 12/12/17 at 21:00 Active Scripts Active Reported Proair Hfa Inhaler (Albuterol Sulfate) 8.5 Gm Hfa.aer.ad 2 Puff INH PRN Q6HRS PRN Tegretol (Carbamazepine) 200 Mg Tablet 1.5 Tab PO BID Depakote (Divalproex Sodium) 500 Mg Tablet.dr 2 Tab PO BID Isosorbide Mononitrate Er (Isosorbide Mononitrate) 30 Mg Tab.er.24h 1 Tab PO DAILY Aspirin 81 Mg Tab.chew 1 Tab PO HS Crestor (Rosuvastatin Calcium) 10 Mg Tablet 10 Mg PO HS Coreg (Carvedilol) 6.25 Mg Tablet 1 Tab PO BID Allergies Allergies: Allergies Coded Allergies Type Severity Reaction Last Updated Verified morphine Allergy Intermediate 12/12/17 Yes ROS Review of System The patient denies any associated fevers, chills, headache, ear pain, rhinorrhea , sore throat, stiff neck, productive cough, chest pain, shortness of breath, back or flank pain, abdominal pain, nausea, vomiting, diarrhea, constipation, dysuria, rash, numbness, weakness, tingling, incontinence, difficulty ambulating, or diaphoresis. Physical Exam Physical Exam General: Well developed, well nourished, no acute distress, well appearing HEENT: Pupils equally round and reactive to light, EOMI, no discharge, normal conjunctiva Neck: Supple, no nuchal rigidity, no JVD, trachea midline, no tenderness Cardiac: RRR, no murmurs, no gallops, no rubs Chest/Lungs: CTAB, no wheeze, no rhonchi, no crackles Abdomen: soft, non-distended, no guarding, no peritoneal signs, non-tender Back: No tenderness Extremities: no edema, pulses intact, non-tender,capillary refill <3 sec bilateral upper and lower extremities, Neuro: Alert and oriented x 4, no focal deficits, normal speech Vitals Vitals: Vital Signs Date Time Temp Pulse Resp B/P (MAP) Pulse Ox O2 Delivery O2 Flow Rate FiO2 12/12/17 13:30 74 110/56 (74) 98 Room Air 12/12/17 12:30 18 2.0 12/12/17 10:53 98.7 98.7 Labs Labs Laboratory Tests Test 12/12/17 01:50 12/12/17 06:30 12/12/17 09:30 White Blood Count 9.3 x10^3/uL (4.0-11.0) Red Blood Count 3.57 x10^6/uL (3.50-5.40) Hemoglobin 12.0 g/dL (12.0-15.5) Hematocrit 34.8 % (36.0-47.0) Mean Corpuscular Volume 98 fL (79-100) Mean Corpuscular Hemoglobin 34 pg (25-35) Mean Corpuscular Hemoglobin Concent 34 g/dL (31-37) Red Cell Distribution Width 14.7 % (11.5-14.5) Platelet Count 151 x10^3/uL (140-400) Neutrophils (%) (Auto) 64 % (31-73) Lymphocytes (%) (Auto) 20 % (24-48) Monocytes (%) (Auto) 15 % (0-9) Eosinophils (%) (Auto) 1 % (0-3) Basophils (%) (Auto) 1 % (0-3) Neutrophils # (Auto) 5.9 x10^3uL (1.8-7.7) Lymphocytes # (Auto) 1.8 x10^3/uL (1.0-4.8) Monocytes # (Auto) 1.4 x10^3/uL (0.0-1.1) Eosinophils # (Auto) 0.1 x10^3/uL (0.0-0.7) Basophils # (Auto) 0.0 x10^3/uL (0.0-0.2) Prothrombin Time 13.0 SEC (11.7-14.0) Prothromb Time International Ratio 1.0 (0.8-1.1) Sodium Level 141 mmol/L (136-145) Potassium Level 4.1 mmol/L (3.5-5.1) Chloride Level 102 mmol/L (98-107) Carbon Dioxide Level 29 mmol/L (21-32) Anion Gap 10 (6-14) Blood Urea Nitrogen 17 mg/dL (7-20) Creatinine 0.8 mg/dL (0.6-1.0) Estimated GFR (Cockcroft-Gault) 72.9 BUN/Creatinine Ratio 21 (6-20) Glucose Level 125 mg/dL (70-99) Calcium Level 9.4 mg/dL (8.5-10.1) Total Bilirubin 0.2 mg/dL (0.2-1.0) Aspartate Amino Transf (AST/SGOT) 22 U/L (15-37) Alanine Aminotransferase (ALT/SGPT) 20 U/L (14-59) Alkaline Phosphatase 132 U/L (46-116) Troponin I Quantitative 0.033 ng/mL (0.000-0.055) 0.167 ng/mL (0.000-0.055) 0.193 ng/mL (0.000-0.055) BI-Ekh-X-Type Natriuretic Peptide 207 pg/mL (0-124) Total Protein 6.9 g/dL (6.4-8.2) Albumin 3.6 g/dL (3.4-5.0) Albumin/Globulin Ratio 1.1 (1.0-1.7) Magnesium Level 1.6 mg/dL (1.8-2.4) Triglycerides Level 88 mg/dL (0-150) Cholesterol Level 207 mg/dL (0-200) LDL Cholesterol, Calculated 100 mg/dL (0-100) VLDL Cholesterol, Calculated 18 mg/dL (0-40) Non-HDL Cholesterol Calculated 118 mg/dL (0-129) HDL Cholesterol 89 mg/dL (40-60) Cholesterol/HDL Ratio 2.3 Thyroid Stimulating Hormone (TSH) 2.455 uIU/mL (0.358-3.74) Creatine Kinase 321 U/L (26-192) Laboratory Tests Test 12/12/17 01:50 12/12/17 06:30 12/12/17 09:30 White Blood Count 9.3 x10^3/uL (4.0-11.0) Red Blood Count 3.57 x10^6/uL (3.50-5.40) Hemoglobin 12.0 g/dL (12.0-15.5) Hematocrit 34.8 % (36.0-47.0) Mean Corpuscular Volume 98 fL (79-100) Mean Corpuscular Hemoglobin 34 pg (25-35) Mean Corpuscular Hemoglobin Concent 34 g/dL (31-37) Red Cell Distribution Width 14.7 % (11.5-14.5) Platelet Count 151 x10^3/uL (140-400) Neutrophils (%) (Auto) 64 % (31-73) Lymphocytes (%) (Auto) 20 % (24-48) Monocytes (%) (Auto) 15 % (0-9) Eosinophils (%) (Auto) 1 % (0-3) Basophils (%) (Auto) 1 % (0-3) Neutrophils # (Auto) 5.9 x10^3uL (1.8-7.7) Lymphocytes # (Auto) 1.8 x10^3/uL (1.0-4.8) Monocytes # (Auto) 1.4 x10^3/uL (0.0-1.1) Eosinophils # (Auto) 0.1 x10^3/uL (0.0-0.7) Basophils # (Auto) 0.0 x10^3/uL (0.0-0.2) Prothrombin Time 13.0 SEC (11.7-14.0) Prothromb Time International Ratio 1.0 (0.8-1.1) Sodium Level 141 mmol/L (136-145) Potassium Level 4.1 mmol/L (3.5-5.1) Chloride Level 102 mmol/L (98-107) Carbon Dioxide Level 29 mmol/L (21-32) Anion Gap 10 (6-14) Blood Urea Nitrogen 17 mg/dL (7-20) Creatinine 0.8 mg/dL (0.6-1.0) Estimated GFR (Cockcroft-Gault) 72.9 BUN/Creatinine Ratio 21 (6-20) Glucose Level 125 mg/dL (70-99) Calcium Level 9.4 mg/dL (8.5-10.1) Total Bilirubin 0.2 mg/dL (0.2-1.0) Aspartate Amino Transf (AST/SGOT) 22 U/L (15-37) Alanine Aminotransferase (ALT/SGPT) 20 U/L (14-59) Alkaline Phosphatase 132 U/L (46-116) Troponin I Quantitative 0.033 ng/mL (0.000-0.055) 0.167 ng/mL (0.000-0.055) 0.193 ng/mL (0.000-0.055) RF-Hrv-F-Type Natriuretic Peptide 207 pg/mL (0-124) Total Protein 6.9 g/dL (6.4-8.2) Albumin 3.6 g/dL (3.4-5.0) Albumin/Globulin Ratio 1.1 (1.0-1.7) Magnesium Level 1.6 mg/dL (1.8-2.4) Triglycerides Level 88 mg/dL (0-150) Cholesterol Level 207 mg/dL (0-200) LDL Cholesterol, Calculated 100 mg/dL (0-100) VLDL Cholesterol, Calculated 18 mg/dL (0-40) Non-HDL Cholesterol Calculated 118 mg/dL (0-129) HDL Cholesterol 89 mg/dL (40-60) Cholesterol/HDL Ratio 2.3 Thyroid Stimulating Hormone (TSH) 2.455 uIU/mL (0.358-3.74) Creatine Kinase 321 U/L (26-192) JAMAR ESPINOZA MD Dec 12, 2017 15:08
[2017-12-12 16:12] LABS: BARBITURATES NEG (NEG); BENZODIAZEPINES POS (NEG); CANNABINOIDS NEG (NEG); COCAINE NEG (NEG); METHADONE NEG (NEG); OPIATES NEG (NEG); PHENCYCLIDINE NEG (NEG)
[2017-12-12 16:18] LABS: AMPHETAMINE/METHAMPHETAMINE NEG (NEG)
[2017-12-12] MEDS ORDERED: HYDROcodone/APAP 5/325MG 1 TAB TABLET PO PRN (17:30)
[2017-12-12] MEDS ORDERED: diphenhydrAMINE HCL 25 MG CAPSULE PO PRN (17:30)
[2017-12-12] MEDS: CARVEDILOL 6.25 MG TABLET. PO SCH (18:06)
[2017-12-12] MEDS: ASPIRIN CHEWABLE 81 MG TABLET. PO SCH (20:01)
[2017-12-12] MEDS ORDERED: ATORVASTATIN CALCIUM 40 MG TABLET. PO SCH (21:00)
[2017-12-13 03:00] VITALS: BP 94/40
[2017-12-13 07:00] VITALS: BP_SYST 104
[2017-12-13] MEDS: CARVEDILOL 6.25 MG TABLET. PO SCH (08:37)
[2017-12-13] MEDS: ASPIRIN CHEWABLE 81 MG TABLET. PO SCH (08:38)
[2017-12-13] MEDS: ISOSORBIDE MONONITRATE ER 30 MG TAB.ER.24H PO SCH (08:43)
[2017-12-13] MEDS: DIVALPROEX DELAYED RELEASE 500 MG TABLET.DR. PO SCH (11:40)
[2017-12-13] MEDS: carBAMazepine 200 MG TABLET PO SCH (11:40)
[2017-12-13 11:45] VITALS: BP 102/53
--- NOTE | 2017-12-13 13:04 | PDOC ---
PROGRESS NOTES Chief Complaint Chief Complaint Chest pain Previous cardiac cath Seizure Knee replacement History of Present Illness History of Present Illness Pt seen and examined Dw RN Daughter present Pt states ready to go home Vitals Vitals Vital Signs Date Time Temp Pulse Resp B/P (MAP) Pulse Ox O2 Delivery O2 Flow Rate FiO2 12/13/17 11:45 98.0 84 102/53 (69) 94 Room Air 98.0 12/13/17 07:35 6.0 12/13/17 07:00 18 Physical Exam General: Alert, Cooperative, No acute distress Heart: Regular rate, Normal S1, Normal S2, Other (2/6 systolic murmur to LLS border) Lungs: Clear Abdomen: Soft, No tenderness Extremities: No cyanosis, No edema Skin: No breakdown, No significant lesion Labs LABS Laboratory Tests Test 12/12/17 15:45 12/13/17 05:00 Urine Opiates Screen Neg (NEG) Urine Methadone Screen Neg (NEG) Urine Barbiturates Neg (NEG) Urine Phencyclidine Screen Neg (NEG) Urine Amphetamine/Methamphetamine Neg (NEG) Urine Benzodiazepines Screen Pos (NEG) Urine Cocaine Screen Neg (NEG) Urine Cannabinoids Screen Neg (NEG) Urine Ethyl Alcohol Neg (NEG) Magnesium Level 2.2 mg/dL (1.8-2.4) Review of Systems Review of Systems Denies pain CO fatigue Assessment and Plan Assessmemt and Plan Chest pain Previous cardiac cath Seizure Knee replacement Plan: Cardiac monitoring PT/OT Home meds Labs Probable D/C to home today Comment Review of Relevant I have reviewed the following items angie (where applicable) has been applied. Labs Laboratory Tests Test 12/12/17 01:50 12/12/17 06:30 12/12/17 09:30 12/12/17 15:45 White Blood Count 9.3 x10^3/uL (4.0-11.0) Red Blood Count 3.57 x10^6/uL (3.50-5.40) Hemoglobin 12.0 g/dL (12.0-15.5) Hematocrit 34.8 % (36.0-47.0) Mean Corpuscular Volume 98 fL (79-100) Mean Corpuscular Hemoglobin 34 pg (25-35) Mean Corpuscular Hemoglobin Concent 34 g/dL (31-37) Red Cell Distribution Width 14.7 % (11.5-14.5) Platelet Count 151 x10^3/uL (140-400) Neutrophils (%) (Auto) 64 % (31-73) Lymphocytes (%) (Auto) 20 % (24-48) Monocytes (%) (Auto) 15 % (0-9) Eosinophils (%) (Auto) 1 % (0-3) Basophils (%) (Auto) 1 % (0-3) Neutrophils # (Auto) 5.9 x10^3uL (1.8-7.7) Lymphocytes # (Auto) 1.8 x10^3/uL (1.0-4.8) Monocytes # (Auto) 1.4 x10^3/uL (0.0-1.1) Eosinophils # (Auto) 0.1 x10^3/uL (0.0-0.7) Basophils # (Auto) 0.0 x10^3/uL (0.0-0.2) Prothrombin Time 13.0 SEC (11.7-14.0) Prothromb Time International Ratio 1.0 (0.8-1.1) Sodium Level 141 mmol/L (136-145) Potassium Level 4.1 mmol/L (3.5-5.1) Chloride Level 102 mmol/L (98-107) Carbon Dioxide Level 29 mmol/L (21-32) Anion Gap 10 (6-14) Blood Urea Nitrogen 17 mg/dL (7-20) Creatinine 0.8 mg/dL (0.6-1.0) Estimated GFR (Cockcroft-Gault) 72.9 BUN/Creatinine Ratio 21 (6-20) Glucose Level 125 mg/dL (70-99) Calcium Level 9.4 mg/dL (8.5-10.1) Total Bilirubin 0.2 mg/dL (0.2-1.0) Aspartate Amino Transf (AST/SGOT) 22 U/L (15-37) Alanine Aminotransferase (ALT/SGPT) 20 U/L (14-59) Alkaline Phosphatase 132 U/L (46-116) Troponin I Quantitative 0.033 ng/mL (0.000-0.055) 0.167 ng/mL (0.000-0.055) 0.193 ng/mL (0.000-0.055) GQ-Deo-T-Type Natriuretic Peptide 207 pg/mL (0-124) Total Protein 6.9 g/dL (6.4-8.2) Albumin 3.6 g/dL (3.4-5.0) Albumin/Globulin Ratio 1.1 (1.0-1.7) Magnesium Level 1.6 mg/dL (1.8-2.4) Triglycerides Level 88 mg/dL (0-150) Cholesterol Level 207 mg/dL (0-200) LDL Cholesterol, Calculated 100 mg/dL (0-100) VLDL Cholesterol, Calculated 18 mg/dL (0-40) Non-HDL Cholesterol Calculated 118 mg/dL (0-129) HDL Cholesterol 89 mg/dL (40-60) Cholesterol/HDL Ratio 2.3 Thyroid Stimulating Hormone (TSH) 2.455 uIU/mL (0.358-3.74) Creatine Kinase 321 U/L (26-192) Urine Opiates Screen Neg (NEG) Urine Methadone Screen Neg (NEG) Urine Barbiturates Neg (NEG) Urine Phencyclidine Screen Neg (NEG) Urine Amphetamine/Methamphetamine Neg (NEG) Urine Benzodiazepines Screen Pos (NEG) Urine Cocaine Screen Neg (NEG) Urine Cannabinoids Screen Neg (NEG) Urine Ethyl Alcohol Neg (NEG) Test 12/13/17 05:00 Magnesium Level 2.2 mg/dL (1.8-2.4) Laboratory Tests Test 12/12/17 15:45 12/13/17 05:00 Urine Opiates Screen Neg (NEG) Urine Methadone Screen Neg (NEG) Urine Barbiturates Neg (NEG) Urine Phencyclidine Screen Neg (NEG) Urine Amphetamine/Methamphetamine Neg (NEG) Urine Benzodiazepines Screen Pos (NEG) Urine Cocaine Screen Neg (NEG) Urine Cannabinoids Screen Neg (NEG) Urine Ethyl Alcohol Neg (NEG) Magnesium Level 2.2 mg/dL (1.8-2.4) Medications Current Medications Fentanyl Citrate (Fentanyl 2ml Vial) 50 mcg 1X ONCE IV Last administered on at 03:09; Start 12/12/17 at 02:30; Stop 12/12/17 at 02:31; Status DC Iohexol (Omnipaque 300 Mg/ml) 75 ml 1X ONCE IV Last administered on 12/12/17at 03:01; Start 12/12/17 at 03:00; Stop 12/12/17 at 03:01; Status DC Info (CONTRAST GIVEN -- Rx MONITORING) 1 each PRN DAILY PRN MC SEE COMMENTS; Start 12/12/17 at 02:45; Stop 12/14/17 at 02:44 Doxycycline Hyclate (Vibra-Tab) 100 mg 1X ONCE PO Last administered on at 04:03; Start 12/12/17 at 03:45; Stop 12/12/17 at 03:46; Status DC Nitroglycerin (Nitrostat) 0.4 mg PRN Q5MIN PRN SL CHEST PAIN; Start 12/12/17 at 03:30; Stop 12/13/17 at 03:29; Status DC Doxycycline Hyclate (Vibra-Tab) 100 mg 1X ONCE PO ; Start 12/12/17 at 03:30; Stop 12/12/17 at 03:31; Status UNV Furosemide (Lasix) 20 mg 1X ONCE IVP Last administered on 12/12/17at 04:03; Start 12/12/17 at 04:00; Stop 12/12/17 at 04:01; Status DC Magnesium Sulfate 50 ml @ 25 mls/hr 1X ONCE IV Last administered on 12/12/17at 09:37; Start 12/12/17 at 09:00; Stop 12/12/17 at 10:59; Status DC Sodium Chloride 1,000 ml @ 100 mls/hr Q10H IV Last administered on 12/12/17at 09:37; Start 12/12/17 at 10:00 Sodium Chloride 1,000 ml @ 100 mls/hr Q10H IV ; Start 12/12/17 at 10:00; Stop 12/12/17 at 10:00; Status DC Aspirin (Ecotrin) 325 mg 1X ONCE PO Last administered on 12/12/17at 10:00; Start 12/12/17 at 09:45; Stop 12/12/17 at 09:46; Status DC Perflutren Protein Type A Microsphe (Optison) 0.66 mg STK-MED ONCE IV ; Start at 09:51; Stop 12/12/17 at 09:52; Status DC Perflutren Protein Type A Microsphe (Optison) 0.66 mg PRN 1X PRN IV SEE COMMENTS Last administered on 12/12/17at 10:15; Start 12/12/17 at 10:00; Stop at 09:59; Status DC Iodixanol (Visipaque 320) 100 ml STK-MED ONCE .ROUTE ; Start 12/12/17 at 10:05; Stop 12/12/17 at 10:06; Status DC Lidocaine HCl (Xylocaine-Mpf 1% 2ml Vial) 2 ml STK-MED ONCE .ROUTE ; Start 12/12 at 10:05; Stop 12/12/17 at 10:06; Status DC Heparin Sodium/ Sodium Chloride 500 ml @ As Directed STK-MED ONCE .ROUTE ; Start 12/12/17 at 10:05; Stop 12/12/17 at 10:06; Status DC Fentanyl Citrate (Fentanyl 2ml Vial) 100 mcg STK-MED ONCE .ROUTE ; Start at 10:49; Stop 12/12/17 at 10:50; Status DC Midazolam HCl (Versed) 5 mg STK-MED ONCE .ROUTE ; Start 12/12/17 at 10:49; Stop 12/12/17 at 10:50; Status DC Heparin Sodium (Porcine) (Heparin Sodium) 10,000 unit STK-MED ONCE .ROUTE ; Start 12/12/17 at 10:49; Stop 12/12/17 at 10:50; Status DC Verapamil HCl (Verapamil) 5 mg STK-MED ONCE .ROUTE ; Start 12/12/17 at 10:49; Stop 12/12/17 at 10:50; Status DC Nitroglycerin (Nitroglycerin) 200 mcg STK-MED ONCE .ROUTE ; Start 12/12/17 at 10 :49; Stop 12/12/17 at 10:50; Status DC Nitroglycerin (Nitroglycerin) 200 mcg 1X ONCE IART Last administered on at 11:33; Start 12/12/17 at 11:15; Stop 12/12/17 at 11:16; Status DC Verapamil HCl (Verapamil) 2.5 mg 1X ONCE IART Last administered on 12/12/17at 11:31; Start 12/12/17 at 11:15; Stop 12/12/17 at 11:16; Status DC Heparin Sodium (Porcine) (Heparin Sodium) 2,500 unit 1X ONCE IART Last administered on 12/12/17at 11:35; Start 12/12/17 at 11:15; Stop 12/12/17 at 11:16 ; Status DC Midazolam HCl (Versed) 5 mg 1X ONCE IV Last administered on 12/12/17at 11:32; Start 12/12/17 at 11:15; Stop 12/12/17 at 11:16; Status DC Fentanyl Citrate (Fentanyl 2ml Vial) 100 mcg 1X ONCE IV Last administered on at 11:31; Start 12/12/17 at 11:15; Stop 12/12/17 at 11:16; Status DC Iodixanol (Visipaque 320) 100 ml 1X ONCE IART Last administered on 12/12/17at 11:29; Start 12/12/17 at 11:15; Stop 12/12/17 at 11:16; Status DC Lidocaine HCl (Xylocaine-Mpf 1% 2ml Vial) 2 ml 1X ONCE INJ Last administered on 12/12/17at 11:32; Start 12/12/17 at 11:15; Stop 12/12/17 at 11:16; Status DC Sodium Chloride 1,000 ml @ 100 mls/hr Q10H IV Last administered on 12/12/17at 13:13; Start 12/12/17 at 12:00 Nitroglycerin (Nitrostat) 0.4 mg PRN Q5MIN PRN SL CHEST PAIN; Start 12/12/17 at 11:30 Heparin Sodium/ Sodium Chloride (HEPARIN for ARTERIAL LINE FLUSH) 1,000 unit 1X ONCE IART Last administered on 12/12/17at 11:37; Start 12/12/17 at 11:45; Stop 12/12/17 at 11:46; Status DC Carbamazepine (TEGretol) 300 mg BID PO Last administered on 12/13/17at 11:40; Start 12/12/17 at 13:00 Divalproex Sodium (Depakote) 1,000 mg BID PO Last administered on 12/13/17at 11: 40; Start 12/12/17 at 13:00 Aspirin (Children'S Aspirin) 81 mg HS PO Last administered on 12/13/17at 08:38; Start 12/12/17 at 21:00 Carvedilol (Coreg) 6.25 mg BIDWMEALS PO Last administered on 12/13/17at 08:37; Start 12/12/17 at 17:00 Isosorbide Mononitrate (Imdur) 30 mg DAILY PO Last administered on 12/13/17at 08 :43; Start 12/12/17 at 13:00 Albuterol Sulfate (Ventolin Neb Soln) 2.5 mg PRN Q6HRS PRN NEB SHORTNESS OF BREATH; Start 12/12/17 at 12:45 Atorvastatin Calcium (Lipitor) 40 mg QHS PO Last administered on 12/12/17at 20: 00; Start 12/12/17 at 21:00 Acetaminophen/ Hydrocodone Bitart (Lortab 5/325) 1 tab PRN Q4HRS PRN PO PAIN; Start 12/12/17 at 17:30; Stop 12/13/17 at 12:37; Status DC Diphenhydramine HCl (Benadryl) 25 mg PRN QHS PRN PO INSOMNIA; Start 12/12/17 at 17:30 Lorazepam (Ativan) 2 mg PRN Q4HRS PRN IV seizure; Start 12/12/17 at 17:45 Active Scripts Active Reported Proair Hfa Inhaler (Albuterol Sulfate) 8.5 Gm Hfa.aer.ad 2 Puff INH PRN Q6HRS PRN Tegretol (Carbamazepine) 200 Mg Tablet 1.5 Tab PO BID Depakote (Divalproex Sodium) 500 Mg Tablet.dr 2 Tab PO BID Isosorbide Mononitrate Er (Isosorbide Mononitrate) 30 Mg Tab.er.24h 1 Tab PO DAILY Aspirin 81 Mg Tab.chew 1 Tab PO HS Crestor (Rosuvastatin Calcium) 10 Mg Tablet 10 Mg PO HS Coreg (Carvedilol) 6.25 Mg Tablet 1 Tab PO BID Vitals/I & O Vital Sign - Last 24 Hours 12/12/17 12/12/17 12/12/17 12/12/17 13:30 15:00 18:06 19:00 Temp 98.4 98.4 Pulse 74 71 71 75 Resp 16 18 B/P (MAP) 110/56 (74) 103/58 (73) 114/55 93/49 (64) Pulse Ox 98 98 94 O2 Delivery Room Air Room Air 12/12/17 12/12/17 12/13/17 12/13/17 19:24 23:11 03:00 07:00 Temp 98.5 98.2 98.3 98.5 98.2 98.3 Pulse 71 70 70 Resp 20 18 B/P (MAP) 105/59 (74) 94/40 (58) 104/ Pulse Ox 93 92 98 O2 Delivery Nasal Cannula Room Air Room Air Room Air O2 Flow Rate 2.0 12/13/17 12/13/17 12/13/17 12/13/17 07:35 08:37 08:43 11:45 Temp 98.0 98.0 Pulse 70 70 84 B/P (MAP) 104/40 104/40 102/53 (69) Pulse Ox 94 O2 Delivery Nasal Cannula Room Air O2 Flow Rate 6.0 Intake and Output 12/12/17 12/12/17 12/13/17 15:00 23:00 07:00 Intake Total 500 ml Output Total 1050 ml 175 ml Balance -550 ml -175 ml WINSOME PEREZ III DO Dec 13, 2017 13:04
--- NOTE | 2017-12-13 13:29 | EEG ---
DATE OF SERVICE: 12/13/2017 ATTENDING PHYSICIAN: Dr. Radhames Cruz. EEG NUMBER [id number] OBJECTIVE: The patient is a 62-year-old female with seizure. DESCRIPTION: This is a digital study. Electrodes are placed according to international 10-20 system. Bipolar and referential montages are available. Activation procedures typically include hyperventilation and intermittent photic stimulation. INTERPRETATION: The waking background consists of 7 Hz, 50-100 microvolt activity, symmetrically distributed over parietooccipital regions and reactive to eye opening. Hyperventilation and intermittent photic stimulation are noncontributory. Stage 1 sleep is achieved with normal electroencephalogram patterns. All computer-identified spikes are reviewed and none are epileptic in nature, mostly artifact. IMPRESSION: This electroencephalogram with the patient awake and asleep is abnormal because of a mild, diffuse disturbance of cerebral activity as may be seen in any of a variety of toxic or metabolic encephalopathies. There is no focal, paroxysmal, or epileptiform activity. Thank you for letting us help with the patient's care. JOHN BRUNNER MD DR: MARE/marcus JOB#: [id number] / [id number]
== END 2017-12-13 13:50 | disposition home or self-care (01) | DRG 282 ==
LOC: ER 01:36 → 2 NORTH 02:30
PROVIDERS: ADMIT Family Medicine; ATTEND Family Medicine
PROC: 4A023N7 Measurement of Cardiac Sampling and Pressure, Left Heart, Percutaneous Approach (ICD-10-PCS; principal; 2017-12-12)
PROC: B2111ZZ Fluoroscopy of Multiple Coronary Arteries using Low Osmolar Contrast (ICD-10-PCS; 2017-12-12)
PROC: B2151ZZ Fluoroscopy of Left Heart using Low Osmolar Contrast (ICD-10-PCS; 2017-12-12)
DX: I21.4 Non-ST elevation (NSTEMI) myocardial infarction (principal); E78.5 Hyperlipidemia, unspecified; I10 Essential (primary) hypertension; I25.10 Atherosclerotic heart disease of native coronary artery without angina pectoris; M19.90 Unspecified osteoarthritis, unspecified site; R56.9 Unspecified convulsions; Z96.652 Presence of left artificial knee joint; I25.2 Old myocardial infarction; Z88.5 Allergy status to narcotic agent; Z87.11 Personal history of peptic ulcer disease; Z82.49 Family history of ischemic heart disease and other diseases of the circulatory system
CPT/HCPCS: 93458; C8929; 36415; 71045; 71275; 80053; 80061; 80307; 82550; 83735; 83880; 84443; 84484; 85025; 85610; 93005; 95816; 96374; 96375; 99152; 99153; C1769; C1892; J1644; J1940; J2250; J3010; J3475; J3490; J7030; Q9956; Q9967; 99285-25; G0479